=== PATIENT | female | born 1940 | race Native Hawaiian/Other Pacific Islander ===

== ENCOUNTER 2018-07-03 09:19 | Outpatient (CLI) | payer OTHER ==
[2018-07-03 10:13] LABS: PLATELET COUNT 235 K/uL (152-353)
== END 2018-07-03 22:53 | disposition home or self-care (01) ==
LOC: RESP 09:19
PROVIDERS: Surgery Vascular Surgery
DX: I65.23 Occlusion and stenosis of bilateral carotid arteries (principal)
CPT/HCPCS: 36415; 80048; 85027; 93005

== ENCOUNTER 2019-04-26 11:57 | Outpatient (CLI) | payer OTHER | END 2019-04-26 19:45 | disposition home or self-care (01) | LOC: RAD 11:57 → EDSTATUS 12:00 → RAD 19:45 | DX: R06.02 Shortness of breath (principal) ==

== ENCOUNTER 2020-05-09 09:50 | Day surgery (SDC) | payer OTHER | END 2020-05-09 10:51 | disposition home or self-care (01) | LOC: OR 09:50 | PROC: 3E0R33Z Introduction of Anti-inflammatory into Spinal Canal, Percutaneous Approach (ICD-10-PCS; principal; 2020-05-09) | PROC: B01BYZZ Fluoroscopy of Spinal Cord using Other Contrast (ICD-10-PCS; 2020-05-09) | DX: M51.16 Intervertebral disc disorders with radiculopathy, lumbar region (principal) | CPT/HCPCS: J1020 ==

== ENCOUNTER 2021-05-03 10:27 | Outpatient (CLI) | payer OTHER | END 2021-05-03 19:31 | disposition home or self-care (01) | LOC: RAD 10:27 | PROVIDERS: ATTEND Nurse Practitioner | DX: R06.02 Shortness of breath (principal) ==

== ENCOUNTER 2021-06-22 09:58 | Outpatient (CLI) | payer OTHER ==
[2021-06-22 10:25] LABS: PLATELET COUNT 253 K/uL (152-353)
[2021-06-22 10:30] LABS: POTASSIUM 4.1 mmol/L (3.6-5.2)
== END 2021-06-22 19:16 | disposition home or self-care (01) ==
LOC: LABW 09:58
PROVIDERS: ATTEND Nurse Practitioner Family
DX: I25.10 Atherosclerotic heart disease of native coronary artery without angina pectoris (principal); Z98.61 Coronary angioplasty status; I10 Essential (primary) hypertension
CPT/HCPCS: 36415; 80048; 85027